=== PATIENT | female | born 1970 | race Caucasian/White ===

== ENCOUNTER 2019-09-25 21:41 | Emergency (ER) | payer MEDICARE, MEDICAID, SELFPAY ==
[2019-09-25 21:52] VITALS: BP 121/58; PULSE 86; RESP 18; TEMP 37; O2SAT 96; BMI 23.5
--- NOTE | 2019-09-25 21:53 | XR_ITS ---
WS: [id number] PORTABLE CHEST HISTORY: drank bleach COMPARISON: 04/18/2017 Mild pulmonary hyperexpansion with granulomata. Normal vasculature. Lungs are clear and well expanded. No pleural effusion or pneumothorax. Cardiac size: Normal. Mediastinum/Aorta: Normal mediastinum. No osseous abnormality seen. XR/XR chest 1V portable [id number] IMPRESSION: Unremarkable portable chest.
--- NOTE | 2019-09-25 21:56 | ECG_ITS ---
Measurements Intervals [place] Rate: 80 P: 50 FL: 152 QRS: 16 QRSD: 85 T: 48 QT: 399 QTc: 463 SINUS RHYTHM POSSIBLE RIGHT VENTRICULAR CONDUCTION DELAY [RSR (QR) IN V1/V2] NONSPECIFIC T-WAVE ABNORMALITY Compared to ECG 04/01/2017 08:45:38 No significant changes Electronically Signed On 09-26-2019 10:30:30 CDT by Donnie Denise MD [email or web address]
[2019-09-25 22:13] LABS: Basophils # 0.1 10^3/uL (0.0-0.1); Basophils % 0.9 %; Eosinophils # 0.1 10^3/uL (0.0-0.8); Eosinophils % 1.3 %; Hematocrit 39.4 % (37.0-47.0); Hemoglobin 12.4 g/dL (11.5-15.3); Lymphocytes # 1.8 10^3/uL (0.8-4.8); Mean Corpuscular HGB Conc 31.5 g/dL (30.0-36.0); Mean Corpuscular Volume 92.3 fL (81-99); Mean Platelet Volume 10.2 fL (7.4-10.4); Monocytes # 0.3 10^3/uL (0.2-0.9); Monocytes % 4.7 %; Neutrophils # 4.1 10^3/uL (1.8-7.7); Neutrophils % 64.6 %; Nucleated Red Blood Cells % 0 %; Platelet Count 342 10^3/cmm (130-400); Red Blood Count 4.27 10^6/uL (4.1-5.3); Red Cell Distribution Width 14.4 % (12.1-15.1); White Blood Count 6.4 10^3/uL (4.0-10.0)
[2019-09-25 22:27] LABS: Lactate (Lactic Acid level) 1.5 mmol/L (0.5-2.2)
[2019-09-25 22:28] LABS: Alanine Aminotransferase 24 U/L (0-33); Albumin Level 4.1 g/dL (3.5-5.2); Alcohol Level 113 mg/dL (0-10); Alkaline Phosphatase 80 IU/L (35-105); Anion Gap 17.7 (5-19); Aspartate Amino Transferase 43 U/L (0-32); Blood Urea Nitrogen 10 mg/dL (6-20); Calcium 9.5 mg/dL (8.5-10.5); Carbon Dioxide 23 mmol/L (22-29); Chloride 104 mmol/L (98-107); Globulin 3.6 g/dL (1.3-4.6); Glomerular Filtration Rate 89.3 mL/min (90-130); Glucose 123 mg/dL (65-115); Osmolality Calculated 289 mOsm/kg (285-295); Potassium 3.7 mmol/L (3.5-5.1); Sodium 141 mmol/L (136-145); Total Bilirubin 0.2 mg/dL (0.15-1.2); Total Protein 7.7 g/dL (6.6-8.7)
[2019-09-25 22:29] LABS: ABG PCO2 44.7 mmHg (35-45); ABG PH Result 7.38 (7.35-7.45); Arterial Blood Gas Hematocrit 39.5 % (37-47); Base Excess ABG 0.5 mmol/L (-2.0-2.0); Blood Gas Allen Test Pos; Blood Gas Sample Site Radial, left; Blood Gas Sample Type Arterial; HCO3 ABG 26.1 mmol/L (22-26); PO2 ABG 82.2 mmHg (80.0-100.0)
[2019-09-25 22:30] LABS: Acetaminophen < 5.0 ug/mL (10-30); Salicylate < 0.3 mg/dL (3-10)
[2019-09-25] MEDS: sodium chloride 0.9% 1,000 ML 999 ML IV (23:19)
[2019-09-26 00:45] VITALS: BP 108/70; PULSE 67; RESP 19; O2SAT 97
--- NOTE | 2019-09-26 00:51 | ED_ITS ---
HPI - General Adult General: Chief complaint: General Medical Stated complaint: DRUG INGESTING Time Seen by Provider: 09/25/19 21:51 History of Present Illness: HPI narrative: 49-year-old female who is intoxicated. She ate some mushrooms earlier, worried that they would make her sick, she then drank a capful of bleach in a capful of hydrogen peroxide to make her sick so that she would throw up. She says the mushrooms were not in her stomach long before she threw them up. She is feeling improved currently. Onset (ago): hour(s) Location: abdomen Radiation: non-radiation Severity: mild Pain Consistency: now resolved Relieving factors: none Exacerbating factors: none Associated symptoms: Reports nausea and vomiting; Deny chest pain, confusion, cough, dyspnea or rash Review of Systems Const: Denies: fever(s) or chills Eyes: Denies: change in vision or blurry vision ENMT: Denies: odynophagia, swelling of lips/tongue, bleeding gums, dental pain, change in hearing, epistaxis, post nasal drip or sinus pain Card: Denies: chest pain Resp: Denies: dyspnea, productive cough, non-productive cough or wheezing GI: Reports: nausea and vomiting : Denies: dysuria or hematuria Musc: Denies: neck pain, back pain, joint redness or joint warmth Skin/Breast: Denies: rash, pruritus or erythema Neuro: Denies: confusion Psych: Denies: anxiety, visual hallucinations or auditory hallucinations PFS ED PFSH: Social History (Updated 06/28/19 @ 10:45 by Annabelle Pelletier LPN, RT) Smoking and tobacco status: current every day smoker cigarettes Packs smoked per day: 1 Years cigarettes smoked: 30 Second hand smoke exposure: No Alcohol intake: current Alcohol intake frequency: 0-2 Drinks per Day Lives independently: Yes Household members: none Marital status: Single Current occupational status: disabled Pets and animals: Yes Pets & animals: dog(s) History of recent travel: No Current gender identity: Female Physical Exam Const: COMMON NORMALS: alert GENERAL APPEARANCE: well developed ORIENTATION/CONSCIOUSNESS: Yes awake, Yes oriented to person, Yes oriented to place and Yes oriented to time HENMT: COMMON NORMALS: normocephalic, external ears normal, Normal external nose present and moist oral mucous membranes HEAD & SCALP: normocephalic FACE & SINUS: normal facial exam NOSE: Normal external nose present and No nasal discharge present EXTERNAL EAR: Yes external ears normal Eye: COMMON NORMALS: Equal, round and reactive pupils present, EOMs intact bilaterally and conjunctivae normal EYELID: eyelids normal CONJUNCTIVA: Yes conjunctivae normal PUPIL: Yes Equal, round and reactive pupils present Neck/C-Spine: COMMON NORMALS: full ROM GENERAL: No tracheal deviation CERVICAL SPINE: No step off deformity Chest: COMMONS NORMALS: normal inspection of the chest CHEST: Yes Symmetrical chest wall rise and No tenderness Resp: COMMON NORMALS: clear to auscultation bilaterally EFFORT & INSPECTION: No tachypneic, No respiratory distress, No retractions, No uses accessory muscles and No tracheal deviation AUSCULTATION: clear to auscultation bilaterally, no rhonchi, no wheezes and lung sounds not diminished Cardio: COMMON NORMALS: regular rate and regular rhythm RATE: regular rate RHYTHM: regular rhythm HEART SOUNDS: no murmurs PERIPHERAL PULSES: radial pulses present GI: INSPECTION: No abdominal distension AUSCULTATION: No Hyperactive bowel sounds present and No Hypoactive bowel sounds present PALPATION: No Tenderness to palpation present (GI), No Guarding due to palpation present (GI) and No Rigid due to palpation PERCUSSION: no dullness to percussion and no tympanic to percussion Neuro: SENSORIUM/ORIENTATION: Yes alert, Yes oriented to person, Yes oriented to place and Yes oriented to time Psych: COMMON NORMALS: mental status grossly normal and speech normal SPEE CH: Yes normal speech Skin: COMMON NORMALS: no rashes or lesions noted GENERAL SKIN EXAM: no rashes or lesions noted Course Vital Signs: Vital signs: Vital Signs Temperature 98.6 F 09/25/19 21:52 Pulse Rate 76 09/26/19 01:46 Respiratory Rate 18 09/26/19 01:46 Blood Pressure 107/76 09/26/19 01:46 Pulse Oximetry 95 09/26/19 01:46 MDM - General Adult MDM Narrative: Medical decision making narrative: 49-year-old female, appears slightly intoxicated. She states that she ate some mushrooms, was afraid that they were going to be bad, and drank a capful of bleach and a capful of hydrogen peroxide. She vomited afterwards. She is feeling better currently. We checked with poison control, these are not toxic amounts of the substances. Her labs are normal otherwise. She will be discharged. Lab Data: Labs: Lab Results 09/25/19 09/25/19 09/25/19 Range/Units 22:07 22:07 22:07 WBC 6.4 (4.0-10.0) 10^3/ uL RBC 4.27 (4.1-5.3) 10^6/u L Hgb 12.4 (11.5-15.3) g/dL Hct 39.4 (37.0-47.0) % MCV 92.3 (81-99) fL MCH 29.0 (28.0-34.0) pg MCHC 31.5 (30.0-36.0) g/dL RDW 14.4 (12.1-15.1) % Plt Count 342 (130-400) 10^3/c mm MPV 10.2 (7.4-10.4) fL Neut % (Auto) 64.6 % Lymph % (Auto) 28.0 % Beauregard % (Auto) 4.7 % Eos % (Auto) 1.3 % Baso % (Auto) 0.9 % Neut # (Auto) 4.1 (1.8-7.7) 10^3/u L Lymph # (Auto) 1.8 (0.8-4.8) 10^3/u L Beauregard # (Auto) 0.3 (0.2-0.9) 10^3/u L Eos # (Auto) 0.1 (0.0-0.8) 10^3/u L Baso # (Auto) 0.1 (0.0-0.1) 10^3/u L Nucleated RBC % (a uto) 0 % Nucleated RBCs # 0.0 /100WBC Specimen Type Sample Site ABG pH (7.35-7.45) ABG pCO2 (35-45) mmHg ABG pO2 (80.0-100.0) mmH g ABG HCO3 (22-26) mmol/L ABG Base Excess (-2.0-2.0) mmol/ L Db Test Hematocrit (37-47) % O2 Delivery Device FiO2 % Television Journalist ID Sodium 141 (136-145) mmol/L Potassium 3.7 (3.5-5.1) mmol/L Chloride 104 (98-107) mmol/L Carbon Dioxide 23 (22-29) mmol/L Anion Gap 17.7 (5-19) BUN 10 (6-20) mg/dL Creatinine 0.7 (0.5-0.9) mg/dL GFR Calculation 89.3 L (90-130) mL/min Glucose 123 H (65-115) mg/dL Calculated Osmolal ity 289 (285-295) mOsm/k g Lactate 1.5 (0.5-2.2) mmol/L Calcium 9.5 (8.5-10.5) mg/dL Total Bilirubin 0.2 (0.15-1.2) mg/dL AST 43 H (0-32) U/L ALT 24 (0-33) U/L Alkaline Phosphata se 80 (35-105) IU/L Total Protein 7.7 (6.6-8.7) g/dL Albumin 4.1 (3.5-5.2) g/dL Globulin 3.6 (1.3-4.6) g/dL Urine Color (Yellow) Urine Appearance (CLEAR) Urine pH (5-7) Ur Specific Gravit y (1.005-1.030) Urine Protein (Negative) Urine Glucose (UA) (Normal) Urine Ketones (Negative) Urine Blood (Negative) Urine Nitrate (Negative) Urine Bilirubin (NEGATIVE) Urine Urobilinogen (Negative) mg/dL Ur Leukocyte Katey ase (Negative) Urine RBC (0-2) /hpf Urine WBC (0-5) /hpf Ur Squamous Epith Cells (0-5) Calcium Oxalate Cr ystal /hpf Urine Bacteria (NONE) Urine Mucus Salicylates < 0.3 L (3-10) mg/dL Urine Opiates Scre en (Negative) ng/mL Acetaminophen < 5.0 L (10-30) ug/mL Ur Barbiturates Sc reen (Negative) ng/mL Ur Phencyclidine S crn (Negative) ng/mL Ur Amphetamines Sc reen (Negative) ng/mL U Benzodiazepines Scrn (Negative) ng/mL Urine Cocaine Scre en (Negative) ng/mL U Marijuana (THC) Screen (Negative) ng/mL Ethyl Alcohol 113 H (0-10) mg/dL 09/25/19 09/26/19 09/26/19 Range/Units 22:20 00:54 00:54 WBC (4.0-10.0) 10^3/ uL RBC (4.1-5.3) 10^6/u L Hgb (11.5-15.3) g/dL Hct (37.0-47.0) % MCV (81-99) fL MCH (28.0-34.0) pg MCHC (30.0-36.0) g/dL RDW (12.1-15.1) % Plt Count (130-400) 10^3/c mm MPV (7.4-10.4) fL Neut % (Auto) % Lymph % (Auto) % Beauregard % (Auto) % Eos % (Auto) % Baso % (Auto) % Neut # (Auto) (1.8-7.7) 10^3/u L Lymph # (Auto) (0.8-4.8) 10^3/u L Beauregard # (Auto) (0.2-0.9) 10^3/u L Eos # (Auto) (0.0-0.8) 10^3/u L Baso # (Auto) (0.0-0.1) 10^3/u L Nucleated RBC % (a uto) % Nucleated RBCs # /100WBC Specimen Type Arterial Sample Site Radial, left ABG pH 7.38 (7.35-7.45) ABG pCO2 44.7 (35-45) mmHg ABG pO2 82.2 (80.0-100.0) mmH g ABG HCO3 26.1 H (22-26) mmol/L ABG Base Excess 0.5 (-2.0-2.0) mmol/ L Db Test Pos Hematocrit 39.5 (37-47) % O2 Delivery Device None FiO2 21.0 % Television Journalist ID [email or web address] Sodium (136-145) mmol/L Potassium (3.5-5.1) mmol/L Chloride (98-107) mmol/L Carbon Dioxide (22-29) mmol/L Anion Gap (5-19) BUN (6-20) mg/dL Creatinine (0.5-0.9) mg/dL GFR Calculation (90-130) mL/min Glucose (65-115) mg/dL Calculated Osmolal ity (285-295) mOsm/k g Lactate (0.5-2.2) mmol/L Calcium (8.5-10.5) mg/dL Total Bilirubin (0.15-1.2) mg/dL AST (0-32) U/L ALT (0-33) U/L Alkaline Phosphata se (35-105) IU/L Total Protein (6.6-8.7) g/dL Albumin (3.5-5.2) g/dL Globulin (1.3-4.6) g/dL Urine Color Yellow (Yellow) Urine Appearance Sl hazy (CLEAR) Urine pH 5 (5-7) Ur Specific Gravit y 1.020 (1.005-1.030) Urine Protein Neg (Negative) Urine Glucose (UA) Norm (Normal) Urine Ketones Negative (Negative) Urine Blood Neg (Negative) Urine Nitrate Negative (Negative) Urine Bilirubin Neg (NEGATIVE) Urine Urobilinogen Norm (Negative) mg/dL Ur Leukocyte Katey ase Negative (Negative) Urine RBC Rare (0-2) /hpf Urine WBC Rare (0-5) /hpf Ur Squamous Epith Cells 5-10 H (0-5) Calcium Oxalate Cr ystal 10-15 H /hpf Urine Bacteria Trace (NONE) Urine Mucus 1+ Salicylates (3-10) mg/dL Urine Opiates Scre en Negative (Negative) ng/mL Acetaminophen (10-30) ug/mL Ur Barbiturates Sc reen Negative (Negative) ng/mL Ur Phencyclidine S crn Negative (Negative) ng/mL Ur Amphetamines Sc reen Positive H (Negative) ng/mL U Benzodiazepines Scrn Negative (Negative) ng/mL Urine Cocaine Scre en Negative (Negative) ng/mL U Marijuana (THC) Screen Positive H (Negative) ng/mL Ethyl Alcohol (0-10) mg/dL Discharge Plan Discharge Patient Disposition: Home, Self-Care Clinical Impression: Ingestion of bleach Qualifiers: Encounter type: initial encounter Injury intent: accidental or unintentional Qualified Code(s): T54.91XA - Toxic effect of unspecified corrosive substance, accidental (unintentional), initial encounter Alcohol intoxication Qualifiers: Complication of substance-induced condition: uncomplicated Qualified Code(s): F10.920 - Alcohol use, unspecified with intoxication, uncomplicated Condition: Stable Prescriptions: No Action fluticasone propionate [Flonase Allergy Relief] 50 mcg/actuation spray,suspension 2 spray INTRANASAL DAILY Qty: 9.9 RF: 6 albuterol sulfate [Ventolin HFA] 90 mcg/actuation HFA aerosol inhaler 2 puff INHALATION Q6H PRN (Reason: shortness of breath or wheezing) Qty: 18 RF: 3 buspirone 15 mg tablet 30 mg PO .twice daily Qty: 60 RF: 4 nortriptyline 25 mg capsule 25 mg PO DAILY Qty: 30 RF: 4 Discharge Orders: Discharge Order (Routine); Ordered 09/25/19 Ordered By: Bakari Madrid Referrals: Annabelle Tadeo FNP [Primary Care Provider] - 4-7 days Discharge Diet: Advance as tolerated Discharge Activity: Increase activity as tolerated Patient Instructions: Alcohol Intoxication (ED) Activity Restrictions/Additional Instructions: Return for vomiting liquids, progressive diarrhea or belly pain. Return also for shortness of breath, cough, fever, other concerning symptoms. Discharge Date/Time: 09/26/19 01:51 Coding Level of Care Code ED Aviation Survival Technician for Oscar Waite
[2019-09-26 01:37] LABS: Add Urine Microscopic? YES; Bilirubin Urine Neg (NEGATIVE); Blood Urine Neg (Negative); Glucose Urine UA Norm (Normal); Ketones Urine Negative (Negative); Leukocyte Esterase Urine Negative (Negative); Nitrate Urine Negative (Negative); Protein Urine Neg (Negative); Urine Appearance SL Hazy (CLEAR); Urine Color Yellow (Yellow); Urobilinogen Urine Norm (Negative); pH Urine 5 (5-7)
[2019-09-26 01:38] LABS: Add Urine Culture? No; Bacteria Urine TRACE; Mucus Urine 1+; RBC Urine RARE /hpf (0-2); WBC Urine RARE /hpf (0-5)
[2019-09-26 01:40] LABS: Amphetamines Screen Urine Positive (Negative); Barbiturates Screen Urine Negative (Negative); Benzodiazepines Screen Urine Negative (Negative); Cocaine Screen Urine Negative (Negative); Opiate Screen Urine Negative (Negative); PCP Screen Urine Negative (Negative); THC Screen Urine Positive (Negative)
[2019-09-26 01:46] VITALS: BP 107/76; PULSE 76; RESP 18; O2SAT 95
== END 2019-09-26 01:51 | disposition home or self-care (01) ==
PROVIDERS: Emergency Provider Emergency Medicine; PCP Nurse Practitioner Family
DX: T54.94XA Toxic effect of unspecified corrosive substance, undetermined, initial encounter (principal); F10.920 Alcohol use, unspecified with intoxication, uncomplicated; F17.210 Nicotine dependence, cigarettes, uncomplicated; Z79.899 Other long term (current) drug therapy
CPT/HCPCS: 12345; 36600; 71045; 80053; 80306; 80307; 81001; 82803; 83605; 85025; 93005; 93010; 96360; 99283; J7030

== ENCOUNTER 2020-03-21 08:53 | Emergency (ER) | payer MEDICARE, MEDICAID, SELFPAY ==
[2020-03-21 08:59] VITALS: BP 110/47; PULSE 63; RESP 18; TEMP 36.7; O2SAT 98; BMI 23.5
--- NOTE | 2020-03-21 09:14 | ED_ITS ---
HPI - Wound/Laceration General: Chief Complaint: Wound/Laceration Stated Complaint: Spider Bite on Right Arm Time Seen by Provider: 03/21/20 09:07 History of Present Illness: HPI narrative: Patient is a 49-year-old female who comes to the ED with a wound on right forearm. Patient says she is unsure what caused the wound, but thinks it could potentially be a spider bite. She says it started yesterday. Patient does have a history of IV drug use, but denies any recent IV drug use. Patient also has a history of staph infections. The wound has gotten more red and swollen in the last 24 hours. Denies any purulent drainage, fever, chills, nausea/vomiting. Patient is up-to-date on her tetanus. Associated symptoms: Denies chills, fever(s), nausea or vomiting Review of Systems Const: Denies: fever(s), chills or fatigue Eyes: Denies: change in vision or eye discomfort ENMT: Denies: throat pain, odynophagia, nasal discharge or nasal congestion Card: Denies: chest pain, palpitations, edema, swelling of feet/ankles, dyspnea on exertion or orthopnea Resp: Denies: dyspnea, productive cough or non-productive cough GI: Denies: abdominal pain, nausea, vomiting, diarrhea, constipation or hematochezia : Denies: flank pain, dysuria or hematuria Musc: Denies: neck pain, back pain or extremity swelling Skin/Breast: Reports: sores (Wound/sore on right forearm.) and new lesions (Right forearm.); Denies: rash Neuro: Denies: headache(s), numbness in extremities or weakness in extremities PFS ED PFSH: Social History Smoking and tobacco status: current every day smoker cigarettes Packs smoked per day: 1 Years cigarettes smoked: 30 Second hand smoke exposure: No Alcohol intake: current Alcohol intake frequency: 0-2 Drinks per Day Lives independently: Yes Household members: none Marital status: Single Current occupational status: disabled Pets and animals: Yes Pets & animals: dog(s) History of recent travel: No Current gender identity: Female Physical Exam Const: COMMON NORMALS: no acute distress, patient oriented x3 and alert GENERAL APPEARANCE: cooperative and comfortable HENMT: COMMON NORMALS: normocephalic HEAD & SCALP: normocephalic MOUTH: Normal oral and palatal mucosa present THROAT: posterior oropharynx normal and uvula midline Eye: COMMON NORMALS: Equal, round and reactive pupils present PUPIL: Yes Equal, round and reactive pupils present Neck/C-Spine: COMMON NORMALS: supple GENERAL: Yes normal visual inspection Resp: COMMON NORMALS: normal respiratory effort, No retractions, No use of accessory muscles and clear to auscultation bilaterally AUSCULTATION: clear to auscultation bilaterally Cardio: COMMON NORMALS: regular rate, regular rhythm, S1 normal heart sound present, S2 normal heart sound present, No gallops present (Cardio), No clicks present (Cardio), No murmurs present (Cardio) and Peripheral pulses 2+ throughout RATE: regular rate RHYTHM: regular rhythm HEART SOUNDS: S1 normal heart sound present and S2 normal heart sound present PERIPHERAL PULSES: Peripheral pulses 2+ throughout GI: COMMON NORMALS: Normal to inspection, nondistended, normoactive bowel sounds present, Soft to palpation, non-tender and no masses PALPATION: Yes Soft to palpation : COMMON NORMALS: Yes no CVA tenderness BLADDER/KIDNEY EXAM: Yes no CVA tenderness Back/Pelvis: COMMON NORMALS: no CVA tenderness Extremity: NARRATIVE EXTREMITY EXAM: Right arm?skin of forearm approximately 2 to 3 cm superior to wrist was a small half a centimeter ulcer with no purulent drainage seen. It had edema and tenderness to palpation. Surrounding erythema and warmth as well. Patient had some visible track yusuf and some mild streaking in the forearm superior of the ulcer. Exam findings likely cellulitis. GENERAL: Yes normal exam except as noted Neuro: COMMON NORMALS: patient oriented x3 and moves all extremities SENSORIUM/ORIENTATION: Yes alert Skin: NARRATIVE SKIN EXAM: Right arm?skin of forearm approximately 2 to 3 cm superior to wrist was a small half a centimeter ulcer with no purulent drainage seen. It had edema and tenderness to palpation. Surrounding erythema and warmth as well. Patient had some visible track yusuf and some mild red streaking in the forearm superior of the ulcer. Exam findings likely cellulitis. GENERAL SKIN EXAM: dry skin Course ED course: I wanted patient to get IV antibiotics but she refused and did not want any IV meds. Patient will sign AMA form upon discharge. Vital Signs: Vital signs: Vital Signs Temperature 98.0 F 11/18/20 08:59 Pulse Rate 86 03/21/20 10:09 Respiratory Rate 18 03/21/20 10:09 Blood Pressure 144/75 03/21/20 10:09 Pulse Oximetry 98 03/21/20 10:09 MDM - Wound/Laceration MDM Narrative: Medical decision making narrative: Patient is a 49-year old female with cellulitis to her right forearm. She has a history of staph infection and IV drug use. Due to her history and some mild red streaking above cellulitis, I wanted to give patient IV antibiotics, but she refused. She was given a shot of Rocephin here in the ED and I placed an order with case management for patient to get a wound care referral. Patient signed AMA form since she refused the IV antibiotics I recommended. she was discharged with a prescription for Bactrim. I told her that case management will be contacting her in the next day or 2 to set up an appointment with wound care clinic. Return to ED precautions given. Patient understood agree with plan. Discharge Plan Discharge Patient Disposition: Home Clinical Impression: Cellulitis Qualifiers: Site of cellulitis: extremity Site of cellulitis of extremity: upper extremity Laterality: right Qualified Code(s): L03.113 - Cellulitis of right upper limb Condition: Stable Prescriptions: New sulfamethoxazole-trimethoprim 800-160 mg tablet 2 tab PO BID 10 Days Qty: 40 RF: 0 No Action fluticasone propionate [Flonase Allergy Relief] 50 mcg/actuation spray,suspension 2 spray INTRANASAL DAILY Qty: 9.9 RF: 6 albuterol sulfate [Ventolin HFA] 90 mcg/actuation HFA aerosol inhaler 2 puff INHALATION Q6H PRN (Reason: shortness of breath or wheezing) Qty: 18 RF: 3 buspirone 15 mg tablet 30 mg PO .twice daily Qty: 60 RF: 4 nortriptyline 25 mg capsule 25 mg PO DAILY Qty: 30 RF: 4 Discharge Orders: Discharge Order (Routine); Ordered 03/21/20 Ordered By: Brent Davidson Referrals: Annabelle Tadeo FNP [Primary Care Provider] - Discharge Diet: Regular Discharge Activity: Resume usual activity Patient Instructions: Cellulitis (ED) Activity Restrictions/Additional Instructions: Follow-up with medical provider as directed. Case management will be contacting you in the next several days to set up an appointment with wound care clinic. Take medications as prescribed. Return to the ER or your medical provider if condition worsens. Please read and understand discharge instructions. If any questions, please ask. Coding Level of Care Code ED Instrumentation Designer for Oscar Fwd Exam Comprehensive
[2020-03-21] MEDS: cefTRIAXone 1,000 mg SDV 1000 MG IM (09:57)
[2020-03-21] MEDS: lidocaine 1% INJ 20 mL IV (10:03)
[2020-03-21 10:09] VITALS: BP 144/75; PULSE 86; RESP 18; O2SAT 98
--- NOTE | 2020-03-21 10:35 | DCPLANNER ---
erp manager had message to schedule a follow up appointment for patient with Wound Care. erp manager called the clinic, Wound Care, spoke with Francisca, gave clinic patients information. A follow up appointment was scheduled for Thursday, March 23, 2020 at 1:[address] Fairchild. erp manager called phone number [phone], this is not a working number. erp manager called patients sister at [phone], this is not accepting phone calls at this time. erp manager then called [phone], patients brother, a voicemail was left to have patient return case mangers phone call. erp manager will try and contact patient at a later date.
--- NOTE | 2020-04-04 13:57 | DCPLANNER ---
Patient had a follow up appointment scheduled for 03.23.20 with Wound Care - patient did attend appointment.
== END 2020-03-21 10:10 | disposition home or self-care (01) ==
PROVIDERS: Emergency Provider Physician Assistant; PCP Nurse Practitioner Family
DX: L03.113 Cellulitis of right upper limb (principal); F17.210 Nicotine dependence, cigarettes, uncomplicated
CPT/HCPCS: 12345; 96372; 99281; 99283; J0696

== ENCOUNTER 2021-02-11 16:19 | Emergency (ER) | payer MEDICARE, MEDICAID, SELFPAY ==
[2021-02-11 16:36] VITALS: BP 145/92; PULSE 76; RESP 16; TEMP 37.1; O2SAT 98
--- NOTE | 2021-02-11 17:12 | W.ED.EXTPRO ---
HPI - Extremity Problem General: Chief complaint: Extremity Injury, Lower Stated complaint: Injury to Rt Foot Time Seen by Provider: 02/11/21 17:10 History of Present Illness: MD Complaint: extremity pain (Right foot) Onset (ago): day(s) (4 days ago) Pain Consistency: constant (Very mild) Location: right Severity scale (1-10): 1 Quality: aching Radiation: none Relieving factors: rest Exacerbating factors: walking Associated symptoms: Deny chest pain, fever(s) or rash Review of Systems Const: Denies: fever(s), chills or fatigue Eyes: Denies: change in vision or eye discomfort ENMT: Denies: throat pain, odynophagia, nasal discharge or nasal congestion Card: Denies: chest pain, palpitations, edema, swelling of feet/ankles, dyspnea on exertion or orthopnea Resp: Denies: dyspnea, productive cough or non-productive cough GI: Denies: abdominal pain, nausea, vomiting, diarrhea, constipation or hematochezia : Denies: flank pain, dysuria or hematuria Musc: Reports: extremity pain (Right foot); Denies: neck pain, back pain or extremity swelling Skin/Breast: Denies: rash or new lesions Neuro: Denies: headache(s), numbness in extremities or weakness in extremities PFSH ED PFSH: Social History Smoking and tobacco status: current every day smoker cigarettes Packs smoked per day: 1 Years cigarettes smoked: 30 Second hand smoke exposure: No Alcohol intake: current Alcohol intake frequency: 0-2 Drinks per Day Lives independently: Yes Household members: none Marital status: Single Current occupational status: disabled Pets and animals: Yes Pets & animals: dog(s) History of recent travel: No Current gender identity: Female Physical Exam Const: COMMON NORMALS: no acute distress, patient oriented x3, healthy appearing and alert GENERAL APPEARANCE: cooperative and comfortable HENMT: COMMON NORMALS: normocephalic HEAD & SCALP: normocephalic MOUTH: Normal oral and palatal mucosa present THROAT: posterior oropharynx normal and uvula midline Eye: COMMON NORMALS: Equal, round and reactive pupils present PUPIL: Yes Equal, round and reactive pupils present Neck/C-Spine: COMMON NORMALS: supple GENERAL: Yes normal visual inspection Resp: COMMON NORMALS: normal respiratory effort, No retractions, No use of accessory muscles and clear to auscultation bilaterally AUSCULTATION: clear to auscultation bilaterally Cardio: COMMON NORMALS: regular rate, regular rhythm, S1 normal heart sound present, S2 normal heart sound present, No gallops present (Cardio), No clicks present (Cardio), No murmurs present (Cardio) and Peripheral pulses 2+ throughout RATE: regular rate RHYTHM: regular rhythm HEART SOUNDS: S1 normal heart sound present and S2 normal heart sound present PERIPHERAL PULSES: Peripheral pulses 2+ throughout GI: COMMON NORMALS: Normal to inspection, nondistended, normoactive bowel sounds present, Soft to palpation, non-tender and no masses PALPATION: Yes Soft to palpation : COMMON NORMALS: Yes no CVA tenderness BLADDER/KIDNEY EXAM: Yes no CVA tenderness Back/Pelvis: COMMON NORMALS: no CVA tenderness Extremity: COMMON NORMALS: normal to inspection, full ROM and no pedal edema Neuro: COMMON NORMALS: patient oriented x3 and moves all extremities SENSORIUM/ORIENTATION: Yes alert Skin: GENERAL SKIN EXAM: dry skin Course Vital Signs: Vital signs: Vital Signs Temperature 98.7 F 02/11/21 16:36 Pulse Rate 76 02/11/21 16:36 Respiratory Rate 16 02/11/21 16:36 Blood Pressure 145/92 02/11/21 16:36 Pulse Oximetry 98 02/11/21 16:36 MDM - Extremity (Nontraumatic) MDM Narrative: Medical decision making narrative: Patient is a 50-year-old female comes to the ED with right foot injury. Exam is benign and neurovascular intact. Right foot x-ray shows no acute fractures or findings. Patient was discharged home with injury to her right foot and told to rest ice and elevate right foot and take [id number] ibuprofen or Tylenol for pain. Follow-up PCP in 7 to 10 days reevaluation. Return to ED precautions given. Patient understood and agreed with plan. Imaging Data^: Xray Ortho: Attestation: I personally reviewed and interpreted this imaging study as follows: Radiologist's impression: [address] [address] XRay Report Signed Patient: Rosemarie Cabello Unit #: [id number] : 1970 Age/Sex: 50 / F ADM Date: 02/11/21 Loc: ER Room/Bed: Attending Dr: Ordering Provider/Ordering MD: Brent Davidson Date of Service: 02/11/21 Procedure(s): XR foot RT min 3V* 20774 Accession Number(s): [id number] Report Number: [id number] PROCEDURE INFORMATION: Exam: XR Right Foot Exam date and time: 02/11/2021 5:20 PM Age: 50 years old Clinical indication: Pain; Foot; Right; Additional info: Right foot injury-kicked object- top of foot pain TECHNIQUE: Imaging protocol: XR Right foot. Views: 3 or more views. COMPARISON: No relevant prior studies available. FINDINGS: Bones/joints: No evidence of fracture. Pes planus. Degenerative changes at the subtalar joints. Soft tissues: Normal. XR/XR foot RT min 3V* 91500 IMPRESSION: No acute findings. Radiation Dose CTDIVOL = (mGy): DLP = (mGy-cm) Dictated By: Lamont Eaton DO Signed By: Lamont Eaton DO Signed Date/Time: 02/11/211811 DD/ 19 Discharge Plan Discharge Patient Disposition: Home Clinical Impression: Injury of right foot Qualifiers: Encounter type: initial encounter Qualified Code(s): S99.921A - Unspecified injury of right foot, initial encounter Condition: Stable Prescriptions: No Action fluticasone propionate [Flonase Allergy Relief] 50 mcg/actuation spray,suspension 2 spray INTRANASAL DAILY Qty: 9.9 RF: 6 albuterol sulfate [Ventolin HFA] 90 mcg/actuation HFA aerosol inhaler 2 puff INHALATION Q6H PRN (Reason: shortness of breath or wheezing) Qty: 18 RF: 3 buspirone 15 mg tablet 30 mg PO .twice daily Qty: 60 RF: 4 nortriptyline 25 mg capsule 25 mg PO DAILY Qty: 30 RF: 4 Discharge Orders: Discharge ED (Routine); Ordered 02/11/21 Ordered By: Brent Davidson Referrals: Annabelle Tadeo FNP [Primary Care Provider] - Discharge Diet: Regular Discharge Activity: Increase activity as tolerated Activity Restrictions/Additional Instructions: Follow-up with medical provider as directed and 7 to 10 days reevaluation. Rest, ice and elevate right foot and take [id number]-[id number] Tylenol or Motrin for pain.. Return to the ER or your medical provider if condition worsens. Please read and understand discharge instructions. Thank you for choosing [facility] for your healthcare needs today. Please realize this is an emergency room and that we are providing you with a medical screening exam and this may not be complete and all inclusive of all the testing and or work up that you may need to determine your ailment or severity of your illness. It is very important that you follow up as instructed or that you return to the Emergency Department should you have concerns or if your condition changes or worsens in any way. Coding Level of Care Code ED B2B Account Executive for Oscar Waite Exam Comprehensive
--- NOTE | 2021-02-11 17:20 | XRR_ITS ---
PROCEDURE INFORMATION: Exam: XR Right Foot Exam date and time: 02/11/2021 5:20 PM Age: 50 years old Clinical indication: Pain; Foot; Right; Additional info: Right foot injury-kicked object- top of foot pain TECHNIQUE: Imaging protocol: XR Right foot. Views: 3 or more views. COMPARISON: No relevant prior studies available. FINDINGS: Bones/joints: No evidence of fracture. Pes planus. Degenerative changes at the subtalar joints. Soft tissues: Normal. XR/XR foot RT min 3V* 19993 IMPRESSION: No acute findings. Radiation Dose CTDIVOL = (mGy): DLP = (mGy-cm)
== END 2021-02-11 18:35 | disposition home or self-care (01) ==
PROVIDERS: Emergency Provider Physician Assistant; PCP Nurse Practitioner Family
DX: S99.921A Unspecified injury of right foot, initial encounter (principal); F17.210 Nicotine dependence, cigarettes, uncomplicated; X58.XXXA Exposure to other specified factors, initial encounter
CPT/HCPCS: 73630; 99281

== ENCOUNTER 2021-10-14 21:14 | Emergency (ER) | payer MEDICARE, MEDICAID, SELFPAY ==
--- NOTE | 2021-10-14 21:22 | XRR_ITS ---
PROCEDURE INFORMATION: Exam: XR Left Wrist Exam date and time: 10/14/2021 9:46 PM Age: 51 years old Clinical indication: Pain; Wrist; Right; Additional info: Left wrist injury TECHNIQUE: Imaging protocol: XR Left wrist. Views: 3 or more views. COMPARISON: No relevant prior studies available. FINDINGS: Bones/joints: Mildly comminuted and displaced fracture of the distal metadiaphysis of the left ulna. No dislocation. Normal bone mineralization. No joint effusion. Joint spaces are maintained. Soft tissues: Mild soft tissue swelling at the distal left forearm medially. No radiopaque foreign body. XR/XR wrist LT min 3V* [id number] IMPRESSION: 1. Mildly comminuted and displaced fracture of the distal metadiaphysis of the left ulna. 2. Mild soft tissue swelling at the distal left forearm medially.
[2021-10-14 21:33] VITALS: BP 107/70; PULSE 95; RESP 17; TEMP 36.8; O2SAT 98; BMI 23.5
== END 2021-10-14 23:05 ==
PROVIDERS: Emergency Provider Family Medicine; PCP Nurse Practitioner Family
DX: Z53.21 Procedure and treatment not carried out due to patient leaving prior to being seen by health care provider (principal); M25.532 Pain in left wrist
CPT/HCPCS: 73110

== ENCOUNTER 2021-10-15 11:03 | Outpatient (CLI) | payer MEDICARE, MEDICAID, SELFPAY ==
--- NOTE | 2021-10-15 | XR_ITS ---
WS: [id number] Left wrist, 3 views, 10/15/2021 Clinical Data: LEFT WRIST PAIN Comparison: Left wrist, 10/14/2021. Findings: The comminuted fracture of the distal left ulna remains the same position. No other fractures are seen. XR/XR wrist LT min 3V* 19375 Impression: Distal left ulnar fracture.
== END 2021-10-15 11:04 | disposition home or self-care (01) ==
LOC: RADOUTREAD 10-16 11:05
PROVIDERS: PCP Nurse Practitioner Family; Visit Provider Nurse Practitioner Family
DX: M25.532 Pain in left wrist (principal); S52.602A Unspecified fracture of lower end of left ulna, initial encounter for closed fracture; X58.XXXA Exposure to other specified factors, initial encounter
CPT/HCPCS: 73110

== ENCOUNTER 2024-01-15 03:01 | Emergency (ER) | payer MEDICARE, MEDICAID, SELFPAY ==
[2024-01-15 03:08] VITALS: BP 131/65; PULSE 83; RESP 20; TEMP 37.2; O2SAT 96; BMI 25.0
[2024-01-15 03:39] LABS: Basophils # 0.1 10^3/uL (0.0-0.1); Basophils % 0.6 %; Eosinophils # 0.2 10^3/uL (0.0-0.8); Eosinophils % 1.3 %; Hematocrit 37.1 % (36-47); Lymphocytes # 2.9 10^3/uL (0.8-4.8); Mean Corpuscular HGB Conc 32.9 g/dL (30-55); Mean Corpuscular Hemoglobin 28.8 pg (27-33); Mean Corpuscular Volume 87.5 fl (85-98); Mean Platelet Volume 10.5 fL (7.4-10.4); Monocytes # 0.9 10^3/uL (0.2-0.9); Neutrophils # 7.12 10^3/uL (1.8-7.7); Neutrophils % 63.8 %; Nucleated Red Blood Cells % 0 %; Platelet Count 283 10^3/cmm (157-399); Red Blood Count 4.24 10^6/uL (3.85-5.65); Red Cell Distribution Width 13.2 % (12.1-15.1); White Blood Count 11.16 10^3/uL (3.29-11.43)
[2024-01-15 03:41] LABS: Bilirubin Urine Negative (Negative); Blood Urine Negative (Negative); Glucose Urine UA Negative (Normal); Ketones Urine Negative (Negative); Leukocyte Esterase Urine 2+ (Negative); Nitrate Urine Negative (Negative); Protein Urine Trace (Negative); Urine Appearance Clear (CLEAR); Urine Color Yellow (Yellow)
[2024-01-15 03:46] LABS: Bacteria Urine None Seen /hpf; Hyaline Casts Urine 1.21 /lpf; RBC Urine 0-2 /hpf (0-2); Squamous Epithelial Cell Urine 0-5 /hpf (0-5); WBC Urine 21-50 /hpf (0-5)
[2024-01-15 03:49] LABS: Add Urine Culture? Yes; Specific Gravity, Urine 1.037 (1.005-1.030)
[2024-01-15 03:58] LABS: Alanine Aminotransferase 22 U/L (0-33); Albumin Level 4.1 g/dL (3.5-5.2); Alkaline Phosphatase 92 U/L (35-105); Anion Gap 14.7 (5-19); Aspartate Amino Transferase 33 U/L (0-32); Blood Urea Nitrogen 17 mg/dL (6-20); C Reactive Protein 6.2 mg/L (0.0-4.9); Carbon Dioxide 25 mmol/L (22-29); Chloride 103 mmol/L (98-107); Creatinine Clr Calc Pharmacy 114.2605; Globulin 3.5 g/dL (1.3-4.6); Glucose 101 mg/dL (65-115); Osmolality Calculated 290 mOsm/kg (285-295); Potassium 3.7 mmol/L (3.5-5.1); Sodium 139 mmol/L (136-145); Total Bilirubin 0.4 mg/dL (0.15-1.2); Total Protein 7.6 g/dL (6.6-8.7)
[2024-01-15] MEDS: cefTRIAXone 1,000 mg SDV 1000 MG IVP (04:01)
[2024-01-15] MEDS: sodium chloride 0.9% 1,000 ML 999 ML IV (04:03)
--- NOTE | 2024-01-15 04:05 | W.ED.WEAKNES ---
HPI - Weakness General: Chief complaint: Weakness Stated complaint: N/V, Fever Time Seen by Provider: 01/15/24 03:07 History of Present Illness: 53-year-old woman presents emergency room with complaints of generalized weakness, nausea, lower abdominal pain. She says she thinks she may have been poisoned. Apparently she ate some charcoal. He thought this might help. She has some blisters in her mouth. No focal motor deficits. No chest pain. Review of Systems Narrative: Constitutional symptoms: Negative except as documented in HPI. Skin symptoms: Negative except as documented in HPI. Eye symptoms: Negative except as documented in HPI. ENMT symptoms: Negative except as documented in HPI. Respiratory symptoms: Negative except as documented in HPI. Cardiovascular symptoms: Negative except as documented in HPI. Gastrointestinal symptoms: Negative except as documented in HPI. Genitourinary symptoms: Negative except as documented in HPI. Musculoskeletal symptoms: Negative except as documented in HPI. Neurologic symptoms: Negative except as documented in HPI. Psychiatric symptoms: Negative except as documented in HPI. Endocrine symptoms: Negative except as documented in HPI. PFSH ED PFSH: Social History Smoking and tobacco/nicotine status: current every day tobacco/nicotine user cigarettes Packs smoked per day: 1 Years cigarettes smoked: 30 Second hand smoke exposure: No Alcohol intake: current Alcohol intake frequency: 0-2 Drinks per Day Substance/Drug Use: current Lives independently: Yes Household members: none Marital status: Single Current occupational status: disabled Pets and animals: Yes Pets & animals: dog(s) Current gender identity: Female Physical Exam Narrative: EXAM NARRATIVE: General: Alert, no acute distress. Skin: Warm, dry. Head: Normocephalic, atraumatic. Neck: Supple, trachea midline. Eye: Extraocular movements are intact. Ears, nose, mouth and throat: mucosa moist. Black substance in her mouth. Some blistering. Cardiovascular: Regular, Normal peripheral perfusion. Respiratory: Lungs are clear to auscultation, respirations are non-labored, breath sounds are equal, Symmetrical chest wall expansion. Gastrointestinal: Soft, Nontender, Non distended Musculoskeletal: Normal ROM, no deformity. Neurological: Alert and oriented, No focal neurological deficit observed. Psychiatric: Cooperative, appropriate mood & affect. Course Vital Signs: Vital signs: Vital Signs Temperature 98.9 F 01/15/24 03:08 Pulse Rate 83 01/15/24 03:08 Respiratory Rate 20 H 01/15/24 03:08 Blood Pressure 131/65 01/15/24 03:08 Pulse Oximetry 96 01/15/24 03:08 MDM - Weakness Medical Decision Making Medical decision making: Differential diagnosis for patient presenting with generalized weakness including but not limited to and based on the above HPI, review of systems and physical exam: Sepsis. Dehydration. Renal failure. Electrolyte abnormalities. Anemia. Congestive heart failure. Hypotension. Coronary syndrome. Hepatitis. Cirrhosis. Infections such as pneumonia, urinary tract infection, [place]ne illness, Cellulitis, Viral infections including influenza and Covid-19. Workup: labwork and lab/exam driven imaging ordered to evaluate, rule in and rule out above pathologies. Lab Review: Laboratory results were reviewed and interpreted by myself the emergency room physician. Mild leukocytosis. No anemia. No renal failure. Drug screen is positive for marijuana and amphetamines. She has a positive urine for urinary tract infection. Urine is also quite concentrated at 1.037. Indicating dehydration I reviewed the patient's medical record. Reexamination: Patient remained stable. No increased work of breathing. No altered mental status. No focal motor deficits. Assessment and plan: Urinary tract infection Dehydration Polysubstance abuse ? IV fluids and IV Rocephin in the emergency room - Discharged home - Discussed plan with patient. Answered any questions. - Evaluation and treatment of this problem were appropriate in the emergency setting. Lab Data 01/15/24 03:24 01/15/24 03:24 Laboratory Results WBC 11.16 10^3/uL (3.29-11.43) 01/15/24 03:24 RBC 4.24 10^6/uL (3.85-5.65) 01/15/24 03:24 Hgb 12.20 g/dL (11.27-16.99) 01/15/24 03:24 Hct 37.1 % (36-47) 01/15/24 03:24 MCV 87.5 fl (85-98) 01/15/24 03:24 MCH 28.8 pg (27-33) 01/15/24 03:24 MCHC 32.9 g/dL (30-55) 01/15/24 03:24 RDW 13.2 % (12.1-15.1) 01/15/24 03:24 Plt Count 283 10^3/cmm (157-399) 01/15/24 03:24 MPV 10.5 fL (7.4-10.4) H 01/15/24 03:24 Neut % (Auto) 63.8 % 01/15/24 03:24 Lymph % (Auto) 26.0 % 01/15/24 03:24 [place] % (Auto) 8.0 % 01/15/24 03:24 Eos % (Auto) 1.3 % 01/15/24 03:24 Baso % (Auto) 0.6 % 01/15/24 03:24 Neut # (Auto) 7.12 10^3/uL (1.8-7.7) 01/15/24 03:24 Lymph # (Auto) 2.9 10^3/uL (0.8-4.8) 01/15/24 03:24 [place] # (Auto) 0.9 10^3/uL (0.2-0.9) 01/15/24 03:24 Eos # (Auto) 0.2 10^3/uL (0.0-0.8) 01/15/24 03:24 Baso # (Auto) 0.1 10^3/uL (0.0-0.1) 01/15/24 03:24 Nucleated RBC % (auto) 0 % 01/15/24 03:24 Nucleated RBCs # 0.0 /100WBC 01/15/24 03:24 Sodium 139 mmol/L (136-145) 01/15/24 03:24 Potassium 3.7 mmol/L (3.5-5.1) 01/15/24 03:24 Chloride 103 mmol/L (98-107) 01/15/24 03:24 Carbon Dioxide 25 mmol/L (22-29) 01/15/24 03:24 Anion Gap 14.7 (5-19) 01/15/24 03:24 BUN 17 mg/dL (6-20) 01/15/24 03:24 Creatinine 0.6 mg/dL (0.5-0.9) 01/15/24 03:24 GFR Calculation 105.0 mL/min (90-130) 01/15/24 03:24 Glucose 101 mg/dL (65-115) 01/15/24 03:24 Calculated Osmolality 290 mOsm/kg (285-295) 01/15/24 03:24 Calcium 9.0 mg/dL (8.5-10.5) 01/15/24 03:24 Total Bilirubin 0.4 mg/dL (0.15-1.2) 01/15/24 03:24 AST 33 U/L (0-32) H 01/15/24 03:24 ALT 22 U/L (0-33) 01/15/24 03:24 Alkaline Phosphatase 92 U/L (35-105) 01/15/24 03:24 C-Reactive Protein 6.2 mg/L (0.0-4.9) H 01/15/24 03:24 Total Protein 7.6 g/dL (6.6-8.7) 01/15/24 03:24 Albumin 4.1 g/dL (3.5-5.2) 01/15/24 03:24 Globulin 3.5 g/dL (1.3-4.6) 01/15/24 03:24 Urine Color Yellow (Yellow) 01/15/24 03:25 Urine Appearance Clear (CLEAR) 01/15/24 03:25 Urine pH 6.0 (5-7) 01/15/24 03:25 Ur Specific [place] 1.037 (1.005-1.030) H 01/15/24 03:25 Urine Protein Trace (Negative) A 01/15/24 03:25 Urine Glucose (UA) Negative (Normal) 01/15/24 03:25 Urine Ketones Negative (Negative) 01/15/24 03:25 Urine Blood Negative (Negative) 01/15/24 03:25 Urine Nitrate Negative (Negative) 01/15/24 03:25 Urine Bilirubin Negative (Negative) 01/15/24 03:25 Urine Urobilinogen 1.0 mg/dL (Negative) 01/15/24 03:25 Ur Leukocyte Esterase 2+ (Negative) A 01/15/24 03:25 Urine RBC 0-2 /hpf (0-2) 01/15/24 03:25 Urine WBC 21-50 /hpf (0-5) H 01/15/24 03:25 Ur Squamous Epith Cells 0-5 /hpf (0-5) 01/15/24 03:25 Amorphous Sediment Not Reportable 01/15/24 03:25 Urine Bacteria None seen /hpf (NONE) 01/15/24 03:25 Hyaline Casts 1.21 /lpf 01/15/24 03:25 Salicylates < 0.3 mg/dL (3-10) L 01/15/24 03:24 Urine Opiates Screen Negative ng/mL (Negative) 01/15/24 03:25 Acetaminophen < 5.0 ug/mL (10-30) L 01/15/24 03:24 Ur Barbiturates Screen Negative ng/mL (Negative) 01/15/24 03:25 Ur Phencyclidine Scrn Negative ng/mL (Negative) 01/15/24 03:25 Ur Amphetamines Screen Positive ng/mL (Negative) H 01/15/24 03:25 U Benzodiazepines Scrn Negative ng/mL (Negative) 01/15/24 03:25 Urine Cocaine Screen Negative ng/mL (Negative) 01/15/24 03:25 U Marijuana (THC) Screen Positive ng/mL (Negative) H 01/15/24 03:25 Ethyl Alcohol < 10 mg/dL (0-10) 01/15/24 03:24 Coronavirus (PCR) Negative (Negative) 01/15/24 03:25 Influenza A (PCR) Negative (Negative) 01/15/24 03:25 Influenza Type B (PCR) Negative (Negative) 01/15/24 03:25 RSV (PCR) Negative (Negative) 01/15/24 03:25 No radiology studies performed this visit Discharge Plan Discharge Patient Disposition: Home Clinical Impression: Urinary tract infection Condition: Stable Prescriptions: New diclofenac sodium 50 mg tablet,delayed release (DR/EC) 50 mg PO BID PRN (Reason: pain) Qty: 14 0RF cefdinir 300 mg capsule 300 mg PO BID 7 Days Qty: 14 0RF No Action fluticasone propionate [Flonase Allergy Relief] 50 mcg/actuation spray,suspension 2 spray INTRANASAL DAILY Qty: 9.9 6RF Rx Instructions: administer into each nostril albuterol sulfate [Ventolin HFA] 90 mcg/actuation HFA aerosol inhaler 2 puff INHALATION Q6H PRN (Reason: shortness of breath or wheezing) Qty: 18 3RF buspirone 15 mg tablet 30 mg PO .twice daily Qty: 60 4RF nortriptyline 25 mg capsule 25 mg PO DAILY Qty: 30 4RF Discharge Orders: Discharge ED (Routine); Ordered 01/15/24 Ordered By: Christa Galvan Referrals: Annabelle Tadeo FNP [Primary Care Provider] - Discharge Diet: Usual diet Discharge Activity: Resume usual activity Patient Instructions: Opioid Safety, Pain Management Activity Restrictions/Additional Instructions: Thank you for choosing [facility] for your healthcare needs today. Please realize this is an emergency room and that we are providing you with a medical screening exam and this may not be complete and all inclusive of all the testing and or work up that you may need to determine your ailment or severity of your illness. You have been screened and evaluated and felt safe for discharge. Health conditions do change or evolve sometimes and as such it is important that you follow up with your Primary Doctor to be re checked, 3-5 days is a general good time frame for follow up. You are always welcome to return to the ED for re assessment if your symptoms are worsening or you have new concerns Coding Level of Care Code ED Retail Coverage Merchandiser Lead for Chg Fwd Related Data Previous Rx's Medication Instructions Recorded albuterol sulfate 90 mcg/actuation 2 puff inhalation Q6H PRN 06/28/19 aerosol inhaler (Ventolin HFA) shortness of breath or wheezing #18 grams buspirone 15 mg tablet 30 mg (2 x 15 mg) PO .twice daily 06/28/19 #60 tabs fluticasone propionate 50 2 spray intranasal DAILY #9.9 mL 06/28/19 mcg/actuation nasal spray,suspension (Flonase Allergy Relief) nortriptyline 25 mg capsule 25 mg PO DAILY #30 caps 06/28/19 cefdinir 300 mg capsule 300 mg PO BID 7 days #14 caps 01/15/24 diclofenac sodium 50 mg 50 mg PO BID PRN pain #14 tabs 01/15/24 tablet,delayed release Allergies Allergy/AdvReac Type Severity Reaction Status Date / Time No Known Allergies Allergy Verified 06/28/19 10:42
[2024-01-15 04:18] LABS: Covid PCR NEGATIVE (Negative); Influenza A NEGATIVE (Negative); Influenza B NEGATIVE (Negative); Respiratory Syncytial Virus Ce NEGATIVE (Negative)
[2024-01-15 04:27] LABS: Salicylate < 0.3 mg/dL (3-10)
[2024-01-15 04:28] LABS: Acetaminophen < 5.0 ug/mL (10-30); Alcohol Level < 10 mg/dL (0-10)
[2024-01-15 04:30] VITALS: BP 143/123; PULSE 76; O2SAT 96
[2024-01-15 04:33] LABS: Amphetamines Screen Urine Positive (Negative); Barbiturates Screen Urine Negative (Negative); Benzodiazepines Screen Urine Negative (Negative); Cocaine Screen Urine Negative (Negative); Opiate Screen Urine Negative (Negative); PCP Screen Urine Negative (Negative); THC Screen Urine Positive (Negative)
[2024-01-15 05:00] VITALS: BP 154/98; PULSE 73; O2SAT 98
[2024-01-15 05:30] VITALS: BP 138/108; PULSE 75; O2SAT 96
[2024-01-15 05:47] VITALS: BP 128/82; PULSE 68; O2SAT 97
== END 2024-01-15 05:49 | disposition home or self-care (01) ==
PROVIDERS: Emergency Provider Emergency Medicine; PCP Nurse Practitioner Family
DX: N39.0 Urinary tract infection, site not specified (principal); F17.210 Nicotine dependence, cigarettes, uncomplicated
CPT/HCPCS: 0241U; 80053; 80306; 80307; 81001; 85025; 86140; 87086; 96361; 96374; 99284; J0696; J7030

== ENCOUNTER 2024-04-28 09:59 | Outpatient (CLI) | payer MEDICARE, MEDICAID, SELFPAY ==
--- NOTE | 2024-04-28 11:00 | MM_ITS ---
WS: [id number] SCREENING DIGITAL BREAST TOMOSYNTHESIS MAMMOGRAM WITH CAD HISTORY: Z12.31 - Encounter for screening mammogram for malignant ... COMPARISON: None available. Bilateral CC and MLO with tomosynthesis and synthetic mammography submitted. Computer aided detection analyzed. Breast composition: There are scattered areas of fibroglandular density. 8 x 7 mm asymmetry in the la teral RIGHT breast at a middle depth. Asymmetry in seen in the upper outer quadrant on the lateral pr ojection. Otherwise benign vascular calcifications. No additional masses. MM/MM scr BI tomosynthesis [id number] IMPRESSION: BI-RADS: 0 - Incomplete: Need additional imaging evaluation. FOLLOW UP: Need Additional Imaging RIGHT breast: Spot compression views (CC and MLO). True ML. Ultrasound to follo w if abnormality persists.
== END 2024-04-28 10:00 | disposition home or self-care (01) ==
LOC: RAD 09:59
PROVIDERS: PCP Internal Medicine; Visit Provider Family Medicine
DX: Z12.31 Encounter for screening mammogram for malignant neoplasm of breast (principal); R92.323 Mammographic fibroglandular density, bilateral breasts; N64.89 Other specified disorders of breast; R92.1 Mammographic calcification found on diagnostic imaging of breast
CPT/HCPCS: 77063; 77067

== ENCOUNTER → 2024-05-25 10:16 | Day surgery (SDC) | payer MEDICARE, MEDICAID, SELFPAY ==
--- NOTE | 2024-05-25 10:41 | SUR.PREOP ---
Case cancelled per Dr. Dumont. Pt used meth on 05/24/24 and has been drinking clear liquids since this morning.
--- NOTE | 2024-05-25 12:06 | W.PM.OPSUD ---
Surgery/Procedure H&P Update DATE OF PROCEDURE: May 25, 2024 DATE H&P PERFORMED: 04/28/24 H&P UPDATE INFORMATION: I have reviewed H&P completed within last 30 days, I have examined patient prior to procedure and No changes to prior documentation PLANNED PROCEDURE: Operation Date: 05/25/24 11:15 Proposed Procedures p Colonoscopy 31805, G0121, Z12.11(Not Applicable) - Ishmael Whyte, DO
== END ==
LOC: GILAB 10:19
PROVIDERS: PCP Family Medicine; Visit Provider Surgery
PROC: 0DJD8ZZ Inspection of Lower Intestinal Tract, Via Natural or Artificial Opening Endoscopic (ICD-10-PCS; CPT 45378; principal; 2024-05-25 11:15)
DX: Z12.11 Encounter for screening for malignant neoplasm of colon (principal); Z53.8 Procedure and treatment not carried out for other reasons

== ENCOUNTER 2024-06-06 09:46 | Outpatient (CLI) | payer MEDICARE, MEDICAID, SELFPAY ==
--- NOTE | 2024-06-06 10:30 | MM_ITS ---
WS: [id number] ADDITIONAL VIEWS RIGHT MAMMOGRAM WITH DIGITAL BREAST TOMOSYNTHESIS. RIGHT BREAST ULTRASOUND HISTORY: abnormal mammogram COMPARISON: 04/28/2024 RIGHT MAMMOGRAM: Spot compression views and true ML with digital breast tomosynthesis and SM. Breast composition: There are scattered areas of fibroglandular density. Asymmetry becomes less conspicuous on additional imaging but there is still asymmetry without distort ion. No suspicious grouping of calcifications. RIGHT BREAST ULTRASOUND 2-D and color Doppler imaging submitted. Ultrasound directed to the upper outer quadrant of the RIGHT breast. Benign lymph node measures 0.8 x 1.0 x 0.4 cm at 9:00, 4 cm from the nipple. Corresponds to the mammographic abnormality. No shadowin g or additional abnormality. MM/MM diag RT tomosynthesis [id number] IMPRESSION: BI-RADS: 2 - Benign. FOLLOW UP: 1 Year Follow-up
--- NOTE | 2024-06-06 11:00 | US_ITS ---
WS: [email or web address] ADDITIONAL VIEWS RIGHT MAMMOGRAM WITH DIGITAL BREAST TOMOSYNTHESIS. RIGHT BREAST ULTRASOUND HISTORY: abnormal mammogram COMPARISON: 04/28/2024 RIGHT MAMMOGRAM: Spot compression views and true ML with digital breast tomosynthesis and SM. Breast composition: There are scattered areas of fibroglandular density. Asymmetry becomes less conspicuous on additional imaging but there is still asymmetry without distort ion. No suspicious grouping of calcifications. RIGHT BREAST ULTRASOUND 2-D and color Doppler imaging submitted. Ultrasound directed to the upper outer quadrant of the RIGHT breast. Benign lymph node measures 0.8 x 1.0 x 0.4 cm at 9:00, 4 cm from the nipple. Corresponds to the mammographic abnormality. No shadowin g or additional abnormality. US/US breast RT limited* [id number] IMPRESSION: BI-RADS: 2 - Benign. FOLLOW UP: 1 Year Follow-up
== END 2024-06-06 09:47 | disposition home or self-care (01) ==
PROVIDERS: PCP Family Medicine; Visit Provider Family Medicine
DX: R92.8 Other abnormal and inconclusive findings on diagnostic imaging of breast (principal); R92.331 Mammographic heterogeneous density, right breast; N64.89 Other specified disorders of breast; R59.0 Localized enlarged lymph nodes
CPT/HCPCS: 76642; 77061; G0279